=== PATIENT | male | born 1940 | race Caucasian/White ===

== ENCOUNTER → 2020-08-10 | Outpatient (CLI) | payer OTHER ==
[~2020-08-10] MED LIST: ALLOPURINOL 30300 M1 PO; DILTIAZEM ER360 MG PO; HYDRALAZINE 5050 MG PO; HYDROCHLOROTHIA25 M2 PO; K-DUR 20 MEQ T20 MEQ PO; LIPITOR 40 MG T40 M1 PO; LISINOPRIL40 MG PO; METOPROLOL TART25 MG PO; MULTI VITAMIN1 EACH PO; VITAMIN C1000 MG PO; ZINC SULFATE220 MG PO
== END ==
LOC: LAB 12:10
PROVIDERS: ATTEND Ophthalmology
DX: Z01.812 Encounter for preprocedural laboratory examination (principal); Z20.828 Contact with and (suspected) exposure to other viral communicable diseases; R05 Cough; R06.02 Shortness of breath; R19.7 Diarrhea, unspecified; J02.9 Acute pharyngitis, unspecified; R43.8 Other disturbances of smell and taste

== ENCOUNTER 2020-08-13 06:37 | Day surgery (SDC) | payer OTHER ==
[~2020-08-13] VITALS: Ht 180.3 cm; Wt 146.1 kg
[2020-08-13 07:29] VITALS: BP 163/64
--- NOTE | 2020-08-17 06:14 | O ---
[facility] [place] [address] OPERATIVE REPORT Name: KAISER DEWITT Room #: DEP [facility] Crystal#: [id number] Admission: 08/13/20 Attend Phys: Jigar Osullivan MD Discharge: 08/13/20 Date of : 42 Report #: [id number] THIS REPORT FOR: cc: Ray Malone MD,Ray Osullivan,Jigar Morley MD ~ CC: René Osullivan DATE OF SERVICE: 08/13/2020 PREOPERATIVE DIAGNOSIS: Recurrent left orbital dermal lipoma. POSTOPERATIVE DIAGNOSIS: Recurrent left orbital dermal lipoma. PROCEDURES: Left transconjunctival orbitotomy. SURGEON: Jigar Osullivan M.D. CONTINUITY COORDINATOR: None. ANESTHESIA: General. COMPLICATIONS: None. INDICATIONS FOR SURGERY: This pleasant 80-year-old morbidly obese gentleman presents with a left superotemporal orbital mass inducing a mechanical ectropion with chronic discharge and irritation of his left eye. He has had a similar mass resected in 2013, only to see the lesion recur. 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 Informed consent was obtained to include but not limited to the potential risk for loss of vision, bleeding, infection, failure to improve the problem and the potential need for further surgery or treatment. DESCRIPTION OF PROCEDURE: The patient was taken to the operating room where general anesthesia was administered. The left orbit was then anesthetized with Xylocaine with epinephrine mixed with Marcaine and Wydase. The patient was subsequently prepped and draped in the usual sterile fashion. The right eye was protected with a moistened sponge. The left upper lid was then retracted digitally allowing the mass to prolapse anteriorly. The prior incision from his 2012 intervention was visible and appeared to be moderately too far anterior to be used once more. A circumlinear incision was then made posterior to this in the vicinity of the equator. An incision was then similarly made in a perpendicular plane through Tenon's capsule. The underlying mass was identified [address] [address] OPERATIVE REPORT Name: KAISER DEWITT Room #: DEP [facility]..#: [id number] Admission: 08/13/20 Attend Phys: Jigar Osullivan MD Discharge: 08/13/20 Date of : 42 Report #: [id number] and appeared to be somewhat cicatrize and drawn anteriorly. It was, however, teased free and bluntly dissected with a cotton-tipped applicator. The mass was clamped at its base and then amputated very delicately with a high-temp cautery. The stump was then grasped with a hemostat prior to releasing the primary clamp. Diligent ____ battery powered cautery was used at the base of the lesion. This appeared to still leave a separate loculated mass inferiorly directly overlying the medial rectus muscle. An incision was then made through that capsule through the prior incision made in [place] to allow access to the mass. It was similarly prolapsed anteriorly and clamped at its base with a hemostat. It was then similarly amputated with a high-temp cautery. That stump was grasped with a forcep prior to releasing the hemostat. Minimal oozing ensued. The conjunctival incision was then closed with loose 6-0 plain gut sutures with buried knots. The wound was then cleaned and dressed with erythromycin ophthalmic ointment. The patient was subsequently transported to the recovery area having tolerated the procedure well with no anesthetic or operative complications being noted. <ELECTRONICALLY SIGNED> By: Jigar Osullivan MD 08/17/20 0614 0915 1006 Jigar Osullivan MD /nt
--- NOTE | 2020-08-19 16:06 | PATH ---
[facility] [address] [place] [address] PATHOLOGY RPT PROCEDURE Name: REEDJJ Room #: DEP [facility].#: [id number] Admission: 08/13/20 Date of : 42 Discharge: 08/13/20 Report #: [id number] Path Case #: [id number] [facility] Accession Number: [id number] . 01 Material submitted: . orbit - LEFT ORBITAL MASS SUSPECTED LIPOMA. Modifiers: left . 01 Clinical history: . ORBITAL DERMOLIPOMA . 02 Diagnosis: Tissue designated as left orbital mass suspected lipoma (orbital dermal lipoma), orbitotomy: - Mature adipose tissue associated with reactive changes, compatible with a lipoma (please see comment). [facility] 08/19/2020 1406 Local . 02 Comment: Examination shows mature adipose tissue interspersed with a few markedly reactive ring-like cells as well as few cells with elongated nuclei. A properly controlled MDM2 immunohistochemical stain is performed on block A1 and it shows no reactivity within any of the nuclei. Findings support the diagnosis rendered. (IUV/db; 08/19/2020) . Professional services performed by [facility] at [facility], [address] [facility] [address]. Technical services performed by [facility], [address] [place] [address], [address], [place] [address]. . 02 Electronically signed: . Ching Butterfield MD, Pathologist NPI- [id number] . 01 Gross description: . The specimen is received in formalin, labeled "Jj Reed, left orbital mass" and consists of 2 segments of yellow lobulated tissue measuring 1.3 x 0.8 x 0.4 cm and 1.6 x 0.6 x 0.4 cm which are entirely submitted in A1. (SDY; 08/14/2020) SYU/SYU 08/14/2020 1300 Local . 02 Pathologist provided ICD-10: D17.79 . 02 CPT . 922130, [id number] Specimen Comment: A courtesy copy of this report has been sent to [phone], [address] [place] [address] PATHOLOGY RPT PROCEDURE Name: JJ REED Room #: DEP [facility] Crystal#: [id number] Admission: 08/13/20 Date of : 42 Discharge: 08/13/20 Report #: [id number] Path Case #: [id number] Specimen Comment: [id number] Specimen Comment: Report sent to / DR JACOBSON Performed at: [address], [place], [place] [id number] MD Zbigniew Newell MD Phone: [phone] Performed at: [address] [id number] MD Ching Butterfield MD Phone: [phone]
== END 2020-08-13 10:11 | disposition home or self-care (01) ==
LOC: OR → TBA 06:38 → OR 07:55
PROVIDERS: ATTEND Ophthalmology
DX: D17.79 Benign lipomatous neoplasm of other sites (principal); I10 Essential (primary) hypertension; G47.30 Sleep apnea, unspecified; Z98.890 Other specified postprocedural states; Z79.899 Other long term (current) drug therapy; Z87.891 Personal history of nicotine dependence; Z85.828 Personal history of other malignant neoplasm of skin; Z96.653 Presence of artificial knee joint, bilateral
CPT/HCPCS: 50010; 50101; 50386; 50398; 51636; 56531; 62110; 62900; 64037; 70005